=== PATIENT | male | born 1955 | race Caucasian/White ===

== ENCOUNTER 2016-10-08 14:28 | Observation (INO) | payer BC, MEDICARE ==
--- NOTE | ~2016-10-08 | OR ---
Unit #: [id number] #: [id number] Patient: ZAHRA GRIMALDO [id number] [address] [place], [place] [address] [id number] MR#: [id number] NAME: ZAHRA GRIMALDO. ROOM: 226 Date of Procedure: 10/08/2016 Admission Date: 10/08/2016 Surgeon: German Gaitan M.D. : 1955 Attending Physician: German Gaitan M.D. Primary Care Physician: Ashok Roman M.D. OPERATIVE REPORT PREOPERATIVE DIAGNOSES Right ureteral and renal stones. POSTOPERATIVE DIAGNOSES Right ureteral and renal stones. PROCEDURES PERFORMED Cystoscopy, right rigid and flexible ureteroscopy, holmium laser lithotripsy, basket extraction of fragments, placement of double-J stent with external tether. ANESTHESIA General with local supplementation. INDICATIONS FOR PROCEDURE This 61-year-old man who presents with 2 large upper right ureteral stones 8 and 6 mm. He is noted to have another stone in the bladder also and a tiny right lower pole renal stone as well as a nonobstructing left intrarenal stone. He presented with colic to the emergency department. DESCRIPTION OF PROCEDURE The patient was given preoperative antibiotics and satisfactory general anesthesia. He was positioned in the dorsal lithotomy position. After routine prep and drape, a 21[place] rigid cystoscope was introduced with a 30-degree lens and video noting a normal anterior urethra and elevated bladder neck from BPH and otherwise mildly trabeculated bladder. The right ureteral orifice was mildly erythematous suggesting that the stone was easily found on the left side of the bladder may have recently passed. This stone was washed out and collected for chemical analysis to be submitted with fragments from later on in the procedure. A Sensor guidewire easily passed up the right ureter where the stones were easily bypassed. A rigid ureteroscope entered the orifice without active dilation, but did not comfortably advance as far as the pelvic brim. I thus placed a 13 x 11 medium length access sheath also effortlessly with no active dilatory force. The flexible ureteroscope was passed upwards noting that in this process, the ureteral stones had been pushed back into the kidney where they were treated in the upper pole with a 200 nanometer laser fiber, very methodically first at setting of rate of 12 and a power of 0.6. Then increasing the power to 1.0. This did not dust, but fragmented into moderately large fragments about a half a dozen of which Unit #: [id number] #: [id number] Patient: ZAHRA GRIMALDO however were small enough to be basket extracted. After completing this and finding no other significant fragments after multiple examinations of the kidney, a 28 x 6 double-J stent was placed. The bladder drained. The device was removed. The stent string secured to the dorsum of the penis and a Uro-jet applied. Stone fragments were collected for chemical analysis. The patient will be discharged home to follow up in 1 week for stent removal. He was given Percocet and Macrobid in the meantime. Dictated by... German Gaitan M.D. JULIETTE/shan TD: 10/09/2016 07:30 JOB #: [id number] OPERATIVE REPORT X German Gaitan MD X PROCEDURE OPERATIVE NOTE
--- NOTE | ~2016-10-08 | CT4 ---
[facility] A Service of [facility] RADIOLOGY TEXT RESULTS PATIENT: ZAHRA GRIMALDO LOCATION: [facility] 226-01 : [birth year] UNIT #: [id number] AGE: [address]: German Gaitan MD SEX: M ORDER DR: [id number] [facility] [address] [place], [place] [address] [id number] I MR#: [id number] Acc #: [id number] NAME: ZAHRA GRIMALDO. : 1955 SEX: M STUDY DATE/TIME: 10/08/2016 13:09 UNIT: [facility] ROOM: [facility] STUDY DESCRIPTION: CT Abd and Pelv Wo Cont Attending Physician: German Gaitan M.D. Ordering Physician: Mariam Julien M.D. Primary Care Physician: Ashok Roman M.D. MEDICAL IMAGING REPORT This report is preliminary unless electronic signature is present EXAM CT abdomen and pelvis without contrast, 10/08/2016 INDICATION Right flank pain for the past week. PROCEDURE Noncontrast CT of the abdomen and pelvis. TECHNIQUE This CT exam was performed with one or more of the following radiation dose reduction techniques: automatic exposure control, adjustment of mA and/or kV according to patient size, and iterative reconstruction. COMPARISON 08/16/2013 FINDINGS ABDOMEN WITHOUT CONTRAST: Included lung bases are clear. Cirrhotic morphology of the liver. Previously demonstrated ascites has resolved. Spleen enlarged measuring 15.8 cm. Adrenal glands and pancreas are unremarkable. Previous cholecystectomy. Bowel loops are nondilated. 8 mm calculus in the proximal right ureter. There is an additional 6 mm calculus in the proximal right ureter. Moderate to moderately severe right-sided hydronephrosis. Nonobstructing calculi in both kidneys, largest in the upper pole of the left kidney measuring 7 mm. PELVIS WITHOUT CONTRAST: There are two small stones at that the region of the left UVJ, largest measuring 2-3 mm. There is no significant left-sided hydronephrosis. No pelvic mass. Small bilateral [facility] A Service [facility] RADIOLOGY TEXT RESULTS PATIENT: ZAHRA GRIMALDO LOCATION: [facility] 226-01 : [birth year] UNIT #: [id number] AGE: [address]: German Gaitan MD SEX: M ORDER DR: fat-containing inguinal hernias. There is a nondisplaced fracture posterolateral left tenth rib. It may have a small amount of surrounding callus but is new compared with the previous study. IMPRESSION 1. Two obstructing calculi in the proximal right ureter, one measuring 8 mm the other 6 mm. There is moderate to moderately severe right-sided hydronephrosis. 2. Bilateral nonobstructing renal calculi. 3. Two calculi in the region of the left UVJ, largest measuring approximately 2-3 mm. There is no significant left-sided hydronephrosis. 4. Probably subacute nondisplaced fracture posterolateral left tenth rib. 5. Cirrhosis. Splenomegaly. Previously demonstrated ascites has resolved. Dictated by... Anshu Turcios M.D. THIS IS AN ELECTRONICALLY VERIFIED REPORT Anshu Turcios M.D. at 10/09/2016 7:09 AM SHANELLE/radha TD: 10/08/2016 22:59 JOB #: [id number] MEDICAL IMAGING REPORT COPY
--- NOTE | ~2016-10-08 | HP ---
Unit #: [id number] #: [id number] Patient: ZAHRA GRIMALDO [id number] [address] [place], [place] [address] [id number] E MR#: [id number] NAME: ZAHRA GRIMALDO. ROOM: Age: 61 Sex: M Admission Date: 10/08/2016 : 1955 Attending Physician: Mariam Julien M.D. Primary Care Physician: Ashok Roman M.D. HISTORY AND PHYSICAL CHIEF COMPLAINT Right flank pain. HISTORY This patient seen by me years ago presented to the emergency department today with acute right flank pain. He has had stones before not requiring surgery by his recollection but now has two stones in the proximal right ureter at the UPJ measuring 8 and 6 mm respectively. Also seen is a tiny right lower pole stone. He has a tiny stone at the left ureteral orifice, nonobstructing, as well as a 7 mm nonobstructing left upper pole renal stone as well. He is admitted for pain control and management and has not eaten all day. His platelets are 109. PAST MEDICAL HISTORY Past medical history includes coronary disease, stroke, hypertension, hypercholesterolemia. PAST SURGICAL HISTORY Cervical fusion, CABG and heart valve not requiring anticoagulation, cholecystectomy, abdominal abscess, bilateral cataracts. HOME MEDICATIONS Atorvastatin, Coreg, vitamins, potassium. ALLERGIES Lisinopril, latex, influenza virus vaccines. PHYSICAL EXAMINATION GENERAL APPEARANCE: On examination patient is uncomfortable, medicated. HEENT: Unremarkable. LUNGS: Clear. CARDIAC: Rate and rhythm regular. ABDOMEN: Large, soft, full with right CVA tenderness. GENITOURINARY: Genitalia unremarkable. EXTREMITIES: No edema. NEUROLOGIC: Intact. DIAGNOSTIC STUDIES LABORATORY: Includes platelets as noted. Unremarkable CMP. Urinalysis: RBC 100 to 200. No evidence of infection. IMAGING: CT scan as noted. Unit #: [id number] #: [id number] Patient: ZAHRA GRIMALDO IMPRESSION Proximal right ureteral/ureteropelvic junction stones. I discussed the option of ESWL but laser lithotripsy immediately available and patient agrees to proceed despite risks and complications including pain, bleeding, infection, ureteral injury, need for prolonged stenting or additional procedures. PLAN Will proceed with right ureteroscopy, laser lithotripsy and stent placement under general anesthesia. Dictated by Nathan Salazar/rodney TD: 10/08/2016 18:17 JOB #: [id number] HISTORY AND PHYSICAL X German Gaitan MD X HISTORY AND PHYSICAL
[2016-10-08 12:05] LABS: URINE SOURCE CLEAN CATCH
[2016-10-08 12:09] LABS: BASOPHIL# 0.1 X10e3 (0-0.3); BASOPHIL% 0.7 % (0-2.5); EOSINOPHIL# 0.2 X10e3 (0-0.7); EOSINOPHIL% 2.3 % (0.0-7.0); HEMATOCRIT 44.4 % (38.0-50.0); LYMPHOCYTE# 0.9 X10e3 (1.0-3.5); LYMPHOCYTE% 13.1 % (17.0-45.0); MEAN CELL VOLUME 92.1 FL (83-96); MEAN CORPUSCULAR HEMOGLOBIN 31.1 PG (28-34); MEAN CORPUSCULAR HGB CONC 33.8 g/dL (30-36); MEAN PLATELET VOLUME 9.5 FL (6.5-11.5); MONOCYTE# 0.6 X10e3 (0-1.0); MONOCYTE% 9.3 % (3.0-12.0); NEUTROPHIL% 74.6 % (40-75); PLATELET COUNT 109 X10e3 (140-420); RED BLOOD COUNT 4.82 X10e (3.90-5.60); RED CELL DISTRIBUTION WIDTH 13.6 % (11.0-15.5); WHITE BLOOD COUNT 6.8 X10e3 (4.0-10.5)
[2016-10-08 12:11] LABS: DIFF IND NO
[2016-10-08 12:14] LABS: URINE APPEARANCE CLEAR; URINE BILIRUBIN NEG (NEG); URINE BLOOD 3+ (NEG); URINE COLOR YELLOW; URINE GLUCOSE NEG (NEG); URINE KETONE NEG (NEG); URINE LEUKOCYTE ESTERASE TRACE (NEG); URINE NITRATE NEG (NEG); URINE PROTEIN NEG (NEG); URINE UROBILINOGEN 0.2 MG/DL (NEG)
[2016-10-08 12:17] LABS: URBCS1 AUWI 100-200 /[HPF] (0-2); URINE BACTERIA AUWI NEG (NEGATIVE); URINE SQUAMOUS EPITHELIAL CELL NONE SEEN /[HPF]
[2016-10-08 12:22] LABS: CULTURE INDICATED? NO
[2016-10-08 12:50] LABS: ALBUMIN SERUM 3.7 g/dL (3.5-5.0); BILIRUBIN, DIRECT 0.3 mg/dL (0.0-0.2); BILIRUBIN,INDIRECT 1.1 mg/dL (0.0-0.9); BILIRUBIN,TOTAL 1.4 mg/dL (0.2-2.0); BUN/CREATININE RATIO 16.15; CALCIUM SERUM 8.7 mg/dL (8.4-10.2); CREATININE SERUM 1.3 mg/dL (0.6-1.4); GLOM FILT RATE Estimated 59.3 mL/min (>60); POTASSIUM 4.4 mmol/L (3.5-5.1); PROTEIN TOTAL SERUM 6.8 g/dL (6.0-8.3)
[~2016-10-08 14:28] MED LIST: ALPRAZOLAM PO; ASPIR-TRIN325 MG PO; BACITRACIN15 GM TOP; BACITRACIN30 GM TOP; BONINE25 M1 PO; BUMEX1 MG PO; CARVEDILOL3.125 MG; CELEBREX PO; CELEBREX100 MG PO; COREG3.125 MG PO; COUMADIN1 MG PO; CRESTOR10 MG PO; DICYCLOMINE HCL20 MG PO; FLEXERIL PO; FLEXERIL10 M1 PO; FLEXERIL10 MG PO; FLOMAX0.4 M1 PO; HYDROCODON-ACE1 EAC9 PO; IMURAN50 MG; KCL PO; KETOPROFEN PO; LEVAQUIN; LIPITOR PO; LORTAB 7.5-5001 TAB; OPANA ER30 MG PO; PACERONE PO; PANTOPRAZOLE SO40 MG PO; PAROXETINE HCL10 MG PO; PAXIL; PAXIL10 MG PO; PERCOCET; PERCOCET 10/3251 TAB PO; PERCOCET10 PO; PERCOCET5/325 PO; PERCOCET7.5; PHENERGAN25 M1 PO; PHENERGAN25 MG PO; STATIN DRUG; TEGRETOL; VICODIN; XANAX0.5 MG PO; ZANAFLEX PO; ZANAFLEX4 M1 PO; ZOFRAN8 MG PO; [UNRECOGNIZED DRUG - OTHER]
[2016-10-08] MEDS ORDERED: MACROBID100 MG PO (20:45)
[2016-10-08] MEDS ORDERED: PERCOCET5/325 PO (20:46)
== END 2016-10-08 21:15 | disposition home or self-care (01) | DRG 694 ==
LOC: CED 14:28 → C2A 15:20
PROVIDERS: Student in an Organized Health Care Education/Training Program; Urology
DX: N13.2 Hydronephrosis with renal and ureteral calculous obstruction (principal); N21.0 Calculus in bladder; N40.0 Benign prostatic hyperplasia without lower urinary tract symptoms; N32.89 Other specified disorders of bladder; I25.10 Atherosclerotic heart disease of native coronary artery without angina pectoris; I10 Essential (primary) hypertension; E78.00 Pure hypercholesterolemia, unspecified; Z86.73 Personal history of transient ischemic attack (TIA), and cerebral infarction without residual deficits; Z88.8 Allergy status to other drugs, medicaments and biological substances; Z88.7 Allergy status to serum and vaccine; Z91.040 Latex allergy status; K74.60 Unspecified cirrhosis of liver; R16.1 Splenomegaly, not elsewhere classified; Z95.1 Presence of aortocoronary bypass graft; Z98.1 Arthrodesis status; Z90.49 Acquired absence of other specified parts of digestive tract
CPT/HCPCS: 36415; 74176; 80048; 80076; 81003; 82150; 82365; 83690; 85025; 88300; 96374; 96375; 96376; 99285; C1758; C2617; G0378; J0690; J1100; J1170; J2250; J2405; J2765; J3010